=== PATIENT | male | born 1990 | race Caucasian/White ===

== ENCOUNTER 2017-06-12 02:32 | Emergency (ER) | payer OTHER ==
--- NOTE | 2017-06-12 02:49 | EDM.PDOC ---
ED HPI GENERAL MEDICAL PROBLEM - General Chief Complaint: General Stated Complaint: NUMBNESS IN LEFT ARM; FEELS LIKE HE IS HIGH Time Seen by Provider: 06/12/17 02:47 - History of Present Illness INITIAL COMMENTS - FREE TEXT/NARRATIVE: HISTORY AND PHYSICAL: History of present illness: Patient 27-year-old male presents with a concern of medical screening exam for dysphoria patient states he just feels where he feels like he has high although has not used any marijuana or other drugs per his history. No fever chills nausea vomiting chest pain or other concerns Review of systems: As per history of present illness and below otherwise all systems reviewed and negative. Past medical history: As per history of present illness and as reviewed below otherwise noncontributory. Surgical history: As per history of present illness and as reviewed below otherwise noncontributory. Social history: No reported history of drug or alcohol abuse. Family history: As per history of present illness and as reviewed below otherwise noncontributory. Physical exam: HEENT: Atraumatic, normocephalic, pupils reactive, negative for conjunctival pallor or scleral icterus, mucous membranes moist, throat clear, neck supple, nontender, trachea midline. Lungs: Clear to auscultation, breath sounds equal bilaterally, chest nontender. Heart: S1S2, regular, negative for clicks, rubs, or JVD. Abdomen: Soft, nondistended, nontender. Negative for masses or hepatosplenomegaly. Negative for costovertebral tenderness. Pelvis: Stable nontender. Genitourinary: Deferred. Rectal: Deferred. Extremities: Atraumatic, negative for cords or calf pain. Neurovascular unremarkable. Neuro: Awake, alert, oriented. Cranial nerves II through XII unremarkable. Cerebellum unremarkable. Motor and sensory unremarkable throughout. Exam nonfocal. Diagnostics: CBC CMP urine drug screen and EtOH EKG chest x-ray Therapeutics: None Impression: #1 medical screening exam #2 dysphoria Definitive disposition and diagnosis as appropriate pending reevaluation and review of above. - Related Data Allergies Allergy/AdvReac Type Severity Reaction Status Date / Time shellfish derived Allergy Edema Verified 06/12/17 02:47 Home Meds: Home Meds . [No Known Home Meds] 11/24/16 [History] Past Medical History - Infectious Disease History Infectious Disease History: Reports: Chicken Pox - Past Surgical History HEENT Surgical History: Reports: Other (See Below) Social & Family History - Family History Family Medical History: Noncontributory - Tobacco Use Smoking Status *Q: Former Smoker - Recreational Drug Use Recreational Drug Use: No ED ROS GENERAL - Review of Systems Review Of Systems: ROS reveals no pertinent complaints other than HPI. ED EXAM, GENERAL - Physical Exam Exam: See Below (See dictation) Departure - Departure Time of Disposition: 02:49 Disposition: Home, Self-Care 01 Condition: Good Clinical Impression: Encounter for medical screening examination - Discharge Information Forms: ED Department Discharge
[2017-06-12 03:37] LABS: CHLORIDE,CL 105 mmol/L (98-110); SODIUM,NA 140 mmol/L (136-146)
[2017-06-12 03:54] VITALS: BP 116/58
== END 2017-06-12 03:51 | disposition home or self-care (01) ==
LOC: MW.ED 02:32
DX: Z00.00 Encounter for general adult medical examination without abnormal findings (principal); Z87.891 Personal history of nicotine dependence; Z91.013 Allergy to seafood
CPT/HCPCS: 36415; 80053; 80306; 82962; 85025; 93005; 99284; G0480; 80305; 99282

== ENCOUNTER 2025-04-26 18:55 | Emergency (ER) | payer BC ==
[2025-04-26 19:08] VITALS: BP 143/87; PULSE 81
== END 2025-04-26 19:44 | disposition home or self-care (01) ==
LOC: MW.ED 18:55
DX: S01.01XA Laceration without foreign body of scalp, initial encounter (principal); Z91.013 Allergy to seafood; W22.8XXA Striking against or struck by other objects, initial encounter
CPT/HCPCS: 12002; 12013; 99282; 99283

== ENCOUNTER 2025-05-07 16:39 | Emergency (ER) | payer BC ==
[2025-05-07 16:50] VITALS: PULSE 93
[2025-05-07 16:51] VITALS: BP 144/81
== END 2025-05-07 16:52 | disposition home or self-care (01) ==
LOC: MW.ED 16:39
DX: S01.81XD Laceration without foreign body of other part of head, subsequent encounter (principal); X58.XXXD Exposure to other specified factors, subsequent encounter
CPT/HCPCS: 99281